=== PATIENT | female | born 1960 | race Caucasian/White ===

== ENCOUNTER → 2018-10-07 | Emergency (ER) | payer SELFPAY ==
[~2018-10-07] VITALS: Ht 167.6 cm; Wt 75.3 kg
--- OUTSIDE RECORDS SUMMARY | 2018-10-07 12:20 | XMS REPORT | Continuity of Care Document ---
Author Author [facility] Interface Address Unknown Phone Unavailable Problems Problem Status Onset Date Classification Date Reported Comments Source Final: En[facility] for screening mamm[facility] for [facility] [place] [facility] Medications Medication Details Route Status Patient Instructions Ordering Provider Order Date Source Allergies, Adverse Reactions, Alerts Substance Category Reaction Severity Reaction type Status Date Reported Comments Source Immunizations Immunization Date Given Site Status Last Updated Comments Source Results Order Name Results Value Reference Range Date Interpretation Comments Source Breast Mammo Scrn SANDI incl CAD MA Breast Mammo Scrn SANDI incl CAD MA BILATERAL DIGITAL SCREENING MAMMOGRAM WITH CAD: 04/12/2017 CLINICAL: Routine/Screening. Current study was evaluated with a Computer Aided Detection (CAD) system. COMPARISON:Comparison is made to exams dated: 12/11/2015 mammogram, 12/25/2014 mammogram, and 12/11/2014 mammogram - [facility]. TECHNIQUE: Mammographic views were obtained using digital acquisition. Current study was also evaluated with a Computer Aided Detection (CAD) system. The tissue of both breasts is heterogeneously dense, which could obscure detection of small masses. FINDINGS: Multiple bilateral oval masses are stable or smaller. No significant masses, calcifications, or other findings are seen in either breast. There has been no significant interval change. IMPRESSION: BENIGN RECOMMENDATION:There is no mammographic evidence of malignancy. A 1 year screening mammogram is recommended.(04/13/2018) This exam was interpreted at [id number] for BERNA Tripp 15Mar Hensley M.D., cm/penrad:04/12/2017 11:02:20 Gameplay Programmer(s): RT Phillip(R)(M), [facility] letter sent: BI-RADS 1/2 Dense Mammogram BI-RADS: 2 Benign 04/12/2017 - - Read by: Beka Johns MD Dictated Date/time: 04/12/17 11:02 Electronically Signed by: Beka Johns MD 04/12/17 11:02 FINAL REPORT [facility] [place] Digital Mammo Screening Sandi MA Digital Mammo Screening Sandi MA - DIGITAL MAMMO SCREENING SANDI MA BILATERAL DIGITAL SCREENING MAMMOGRAM WITH CAD: 12/11/2015 CLINICAL: Routine. Current study was evaluated with a Computer Aided Detection (CAD) system. Comparison is made to exams dated: 07/15/2009 mammogram - [facility]. The tissue of both breasts is heterogeneously dense, which could obscure detection of small masses. There are benign scattered calcifications and densities in both breasts. There also is a benign stable mass in the right breast, 9:00. No significant masses, calcifications, or other findings are seen in either breast. There has been no significant interval change. IMPRESSION: BENIGN There is no mammographic evidence of malignancy. A 1 year screening mammogram is recommended. Jose Ramon Barrios M.D. mt/:12/12/2015 16:29:11 Gameplay Programmer: Nell DAVIDSON(R)(M), [facility] This exam was dictated and interpreted by [id number] for [facility]. letter sent: Normal exam Mammogram BI-RADS: 2 Benign 12/11/2015 - - Read by: Jose Ramon Barrios MD Dictated Date/time: 12/12/15 16:29 Electronically Signed by: Jose Ramon Barrios MD 12/12/15 16:29 FINAL REPORT [facility] Vital Signs Vital Sign Value Date Comments Source Encounters Location Location Details Encounter Type Encounter Number Reason For Visit Attending Provider ADM Date DC Date Status Source [facility] [place] [facility] [id number] Caden Jennings 12/09/2015 01/08/2016 [facility] [place] [facility] [id number] Salome Brennan 12/11/2015 12/12/2015 [facility] [place] [facility] [id number] Salome Brennan 04/12/2017 04/13/2017 [facility] [place] Procedures Procedure Code Date Perfomer Comments Source
--- OUTSIDE RECORDS SUMMARY | 2018-10-07 12:20 | XMS REPORT | Clinical Summary ---
Author Author [facility] Organization [facility] Address Unknown Phone Unavailable Care Team Providers Care Move Coordinator Name Role Phone Manny Gray MD PCP Allergies No Known Allergies Medications No known medications Active Problems No known active problems Family History * Patient is adopted Relation Name Status Comments Father Mother Alive Social History Date Tobacco Use Types Packs/Day Years Used Never Smoker Smokeless Tobacco: Never Used Alcohol Use Drinks/Week oz/Week Comments Yes OCCASIONAL Sex Assigned at Date Recorded Not on file Industry Job Start Date Occupation Not on file Not on file Not on file Travel End Travel History Travel Start No recent travel history available. Last Filed Vital Signs Not on file Plan of Treatment Care Team Description Date Type Specialty Salome Brennan MD [address] [place] [address] [phone] 10/16/2018 Office Visit Obstetrics and Gynecology Health Maintenance Due Date Last Done Comments BREAST CANCER SCREENING 1958 CERVICAL CANCER SCREENING 08/02/1979 COLON CANCER SCREENING 2008 SHINGLES VACCINES (#1) 2008 INFLUENZA VACCINE 12/28/2018 Results Not on fileafter 10/06/2017 Insurance Payer Benefit Subscriber ID Type Phone Address Plan / Group BCBS BCBS xxxxxxxxxxxx PPO CHOICE PPO/[employer] EMPL PPO Advance Directives Patient has advance care planning documents on file. For more information, lucy kincaid contact: [facility] [address] [place] [address]
--- OUTSIDE RECORDS SUMMARY | 2018-10-07 12:20 | XMS REPORT ---
Author Author [facility] Address Unknown Phone Unavailable Care Team Providers Care Instrument Maker Name Role Phone Unavailable Unavailable Problems This patient has no known problems. Allergies, Adverse Reactions, Alerts This patient has no known allergies or adverse reactions. Medications This patient has no known medications.
--- OUTSIDE RECORDS SUMMARY | 2018-10-07 12:20 | XMS REPORT | Summary of Care ---
Author Author [facility] Address Unknown Phone Unavailable Encounter HQ Fordntr_arielmaura(FIN) [id number] Date(s): 12/11/15 - 12/11/15 [facility] [address] [place] [address] [phone] Discharge Disposition: Home Attending Physician: Salome Brennan MD Vital Signs No data available for this section Problem List No data available for this section Allergies, Adverse Reactions, Alerts No data available for this section Medications No data available for this section Results No data available for this section Immunizations No data available for this section Procedures No data available for this section Social History No data available for this section Assessment and Plan No data available for this section
--- OUTSIDE RECORDS SUMMARY | 2018-10-07 12:20 | XMS REPORT | Summary of Care ---
Author Author [facility] Address Unknown Phone Unavailable Encounter Lindsayr_cliff([facility]) [id number] Date(s): 12/09/15 - 01/07/16 [facility] Discharge Disposition: Home or Self Care Attending Physician: Caden Jennings MD Vital Signs No data available for [...]
--- OUTSIDE RECORDS SUMMARY | 2018-10-07 12:20 | XMS REPORT | Summary of Care ---
Author Author [facility] [place] Organization [facility] [place] Address Unknown Phone Unavailable Encounter HQ Encntr_alias(FIN) [id number] Date(s): 04/12/17 - 04/12/17 [facility] - [place] [address] [place] [phone] Final: Encounter for screening mammogram for malignant neoplasm of breast Discharge Disposition: Home or Self Care Attending Physician: Salome Brennan MD Vital Signs [...]
--- OUTSIDE RECORDS SUMMARY | 2018-10-07 12:20 | XMS REPORT | Summary of Care ---
Author Author AMINA JACOBS M.D. Organization Unknown Address [facility] Phone Unavailable Care Team Providers Care Supervisor Telephone Answering Service Name Role Phone LUIS MANUEL DÍAZ M.D., AMINA Unavailable Unavailable Unavailable Unavailable Functional Status Name Dates Details Functional status health issues are not documented Status: Name Dates Details Cognitive status health issues are not documented Status: Problems Name Dates Details Pain in joint of right shoulder (719.41, M25.511) Status: Active Separation of right acromioclavicular joint, type 3, initial encounter (831.04, S43.101A) Status: Active Cervical spondylosis (721.0, M47.812) Status: Active Subacromial bursitis of right shoulder joint (726.19, M75.51) Status: Active Medications Name Dates Details No Reported Medications Active Allergies and Adverse Reactions Name Dates Details No Known Drug Allergies (Allergy) Status: Active Past Medical History Name Dates Details History of depression (V11.8, Z86.59) Status: Resolved History of hay fever (V12.69, Z87.09) Status: Resolved History of psychiatric treatment (V15.89, Z92.89) Status: Resolved History of scarlet fever (V12.09, Z86.19) Status: Resolved Procedures Procedure Dates Details History of Foot surgery Completed Immunization Name Dates Details Immunizations not documented Family History Name Dates Details No pertinent family history Comments: Family History Status: Active Social History Name Dates Details Unknown if ever smoked Vital Signs Date Test Result Details No Known Vitals to report Results Date Description Value Details :54 [U] XRAY SHOULDER MIN 2 VWS RIGHT 56581 XR SHOULDER MIN 2 VWS RIGHT Images acquired, not reported on this accession number. :54 [U] XRAY SPINE CERVICAL 2 OR 3 VWS 15954 XR SPINE CERVICAL 2 OR 3 VWS Images acquired, not reported on this accession number. Plan of Care Name Dates Details Planned Observations Planned Goals not documented Planned Encounters Physical Therapy Referral Ortho Interventions Provided Labs/Procedures/Imaging* [U] XRAY SHOULDER MIN 2 VWS RIGHT [id number]; Done: 13 Oct 2017 * [U] XRAY SPINE CERVICAL 2 OR 3 VWS [id number]; Done: 13 Oct 2017 Plan* Patient Education/Instructions: * Patient Education Provided * Reassurance * Patient/Parent to call or return with any abnormal changes * Orders: * Physical Therapy * Medications: * Medications (prescribed or recommended at this visit): * - Recommend use of OTC NSAIDSOTC NSAIDS * Acetaminophen. Instructions Name Dates Details Instructions not documented Encounters Appointment; KRISTOFER BACK M.D. Encounter Diagnosis: Problem not documented On: 02-Dec-2015 14:00 Appointment; FRANC MCMAHON, PMarAMar Encounter Diagnosis: Problem not documented On: 30-Dec-2015 13:45 Appointment; AMINA JACOBS M.D. Encounter Diagnosis: Problem not documented On: 13-Oct-2017 9:15
[2018-10-07 13:04] VITALS: BP 200/99
== END | disposition left against medical advice (07) ==
LOC: FSED 12:17
DX: R51 Headache (principal)